=== PATIENT | female | born 1980 | race Caucasian/White ===

== ENCOUNTER 2019-06-14 08:19 | Observation (INO) | payer SELFPAY ==
[2019-06-14] VITALS (10 sets, daily range): BP systolic 121–156; BP diastolic 78–93; PULSE 62–79; RESP 16–22; TEMP 36.5–37.1; O2SAT 97–98; BMI 38.4
--- NOTE | 2019-06-14 08:21 | ED_ITS ---
Entered by Stephanie Locke, acting as scribe for Dinesh Juan DO HPI - Abdominal Pain General: Chief Complaint: Abdominal Pain Stated Complaint: abd pain Time Seen by Provider: 06/14/19 08:19 Source: patient and family Mode of arrival: ambulatory Limitations: no limitations History of Present Illness: HPI narrative: 38 yo female presents with abdomen pain and cramping. pt states this started yesterday. pt has had loss of appetite. pt has had nausea and vomiting. pt states nothing makes this better or worse. MD elicited complaint: abdominal pain (cramping) Pertinent past history: none Onset (ago): day(s) (last night) Pain Consistency: constant Location: LUQ and RUQ Severity: moderate Quality: cramping Radiation: none Exacerbating factors: vomiting Relieving factors: nothing Associated Symptoms: Reports nausea and vomiting Review of Systems General: Reports: 10 or more systems reviewed and unremarkable except in HPI and below GI: Reports: abdominal pain, nausea and vomiting PFSH ED PFSH: Statuses (acute, chronic, etc) shown below reflect problem list status as previously entered and may not be historically accurate Social History Smoking and tobacco status: current every day smoker Physical Exam Const: COMMON NORMALS: no apparent distress, average body habitus, oriented x3, no limitations, healthy appearing, alert and well nourished HENMT: COMMON NORMALS: normocephalic, head/scalp atraumatic, hearing grossly normal bilaterally, external ears normal, EAC's normal, TM's normal bilaterally, external nose normal, nasal mucous membranes and turbinates normal, moist oral mucous membranes, oropharynx normal, dentition normal and gingiva normal HEAD & SCALP: normocephalic and atraumatic NOSE: external nose normal and nasal mucous membranes and turbinates normal EXTERNAL EAR: Yes external ears normal EXTERNAL AUDITORY CANAL: EAC's normal TYMPANIC MEMBRANE: TM's normal bilaterally Eye: COMMON NORMALS: PERRL, EOMs intact bilaterally, conjunctivae normal, no scleral icterus, no papilledema, normal visual araujo by confrontation and fundi normal bilaterally CONJUNCTIVA: Yes conjunctivae normal PUPIL: Yes PERRL DIRECT OPHTHALMOSCOPY: Yes no papilledema and Yes fundi normal bilaterally Neck/C-Spine: COMMON NORMALS: full ROM, no lymphadenopathy, supple, no meningeal signs, no JVD, thyroid normal and no carotid bruits THYROID: thyroid normal Chest: COMMONS NORMALS: inspection of chest normal and palpation of chest normal Resp: COMMON NORMALS: normal respiratory effort, no retractions, no use of accessory muscles, clear to auscultation bilaterally and percussion normal AUSCULTATION: clear to auscultation bilaterally PERCUSSION: percussion normal Cardio: COMMON NORMALS: no JVD, regular rate, regular rhythm, S1 normal heart sound, S2 normal heart sound, no gallops, no clicks, no murmurs, no rub and peripheral pulses 2+ throughout RATE: regular rate RHYTHM: regular rhythm HEART SOUNDS: S1 normal and S2 normal PERIPHERAL PULSES: pulses 2+ throughout : COMMON NORMALS: Yes no CVA tenderness and Yes external appearance normal BLADDER/KIDNEY EXAM: Yes no CVA tenderness Back/Pelvis: COMMON NORMALS: no CVA tenderness, thoracic and lumbar spine normal to inspection, no thoracic nor lumbar tenderness, thoraco-lumbar ROM normal and straight leg raise negative bilaterally Extremity: COMMON NORMALS: normal to inspection, full ROM, normal capillary refill, no joint enlargement, no clubbing, cyanosis or edema, no calf tenderness and no pedal edema Neuro: COMMON NORMALS: oriented x3 SENSORIUM/ORIENTATION: Yes alert MENINGEAL SIGNS: Yes no meningeal signs Skin: COMMON NORMALS: no rashes or lesions noted, no wounds, skin turgor normal, no jaundice, no petechiae and no mottling GENERAL SKIN EXAM: no rashes or lesions noted and turgor normal Course Vital Signs: Vital signs: Vital Signs Temperature 97.7 F 06/14/19 08:22 Pulse Rate 62 06/14/19 08:22 Respiratory Rate 16 06/14/19 08:22 Blood Pressure 139/84 06/14/19 08:22 Pulse Oximetry 97 06/14/19 08:32 MDM - Abdominal Pain Lab Data: Labs: Lab Results 06/14/19 06/14/19 06/14/19 Range/Units 08:40 09:05 09:05 WBC 12.1 H (4.0-10.0) 10^3/ uL RBC 5.18 (4.1-5.3) 10^6/u L Hgb 13.6 (11.5-15.3) g/dL Hct 43.5 (37.0-47.0) % MCV 84.0 (81-99) fL MCH 26.3 L (28.0-34.0) pg MCHC 31.3 (30.0-36.0) g/dL RDW 14.2 (12.1-15.1) % Plt Count 568 H (130-400) 10^3/c mm MPV 9.4 (7.4-10.4) fL Neut % (Auto) 73.3 % Lymph % (Auto) 19.6 % [place] % (Auto) 4.1 % Eos % (Auto) 2.3 % Baso % (Auto) 0.3 % Neut # (Auto) 8.9 H (1.8-7.7) 10^3/u L Lymph # (Auto) 2.4 (0.8-4.8) 10^3/u L [place] # (Auto) 0.5 (0.2-0.9) 10^3/u L Eos # (Auto) 0.3 (0.0-0.8) 10^3/u L Baso # (Auto) 0.0 (0.0-0.1) 10^3/u L Nucleated RBC % (a uto) 0 % Nucleated RBCs # 0.0 /100WBC Sodium 137 (136-145) mmol/L Potassium 4.4 (3.5-5.1) mmol/L Chloride 102 (98-107) mmol/L Carbon Dioxide 20 L (22-29) mmol/L Anion Gap 19.4 H (5-19) BUN 11 (6-20) mg/dL Creatinine 0.5 (0.5-0.9) mg/dL GFR Calculation 138.1 H (90-130) mL/min Glucose 158 H (65-115) mg/dL Lactate (0.5-2.2) mmol/L Calcium 9.3 (8.5-10.5) mg/dL Total Bilirubin 0.3 (0.15-1.2) mg/dL AST 20 (0-32) U/L ALT 16 (0-33) U/L Alkaline Phosphata se 140 H (35-105) IU/L Creatine Kinase 231 H (26-192) U/L Total Protein 8.0 (6.6-8.7) g/dL Albumin 3.7 (3.5-5.2) g/dL Globulin 4.3 (1.3-4.6) g/dL Lipase 11 L (13-60) U/L HCG, Qual (Negative) Urine Color Yellow (Yellow) Urine Appearance Cloudy (CLEAR) Urine pH 7.0 (5-7) Ur Specific Gravit y 1.010 (1.005-1.030) Urine Protein Trace (Negative) Urine Glucose (UA) Norm (Normal) Urine Ketones 1+ H (Negative) Urine Occult Blood 2+ H (Negative) Urine Nitrate Negative (Negative) Urine Bilirubin 1+ H (NEGATIVE) Urine Urobilinogen 4 H (Negative) mg/dL Ur Leukocyte Hcelo ase 1+ H (Negative) Urine RBC 0-4 H (0-2) /hpf Urine WBC 0-4 H (0-5) /hpf Ur Squamous Epith Cells 15-25 H (0-5) Urine Bacteria 1+ H (NONE) Urine Mucus 2+ 06/14/19 06/14/19 Range/Units 09:05 09:05 WBC (4.0-10.0) 10^3/ uL RBC (4.1-5.3) 10^6/u L Hgb (11.5-15.3) g/dL Hct (37.0-47.0) % MCV (81-99) fL MCH (28.0-34.0) pg MCHC (30.0-36.0) g/dL RDW (12.1-15.1) % Plt Count (130-400) 10^3/c mm MPV (7.4-10.4) fL Neut % (Auto) % Lymph % (Auto) % [place] % (Auto) % Eos % (Auto) % Baso % (Auto) % Neut # (Auto) (1.8-7.7) 10^3/u L Lymph # (Auto) (0.8-4.8) 10^3/u L [place] # (Auto) (0.2-0.9) 10^3/u L Eos # (Auto) (0.0-0.8) 10^3/u L Baso # (Auto) (0.0-0.1) 10^3/u L Nucleated RBC % (a uto) % Nucleated RBCs # /100WBC Sodium (136-145) mmol/L Potassium (3.5-5.1) mmol/L Chloride (98-107) mmol/L Carbon Dioxide (22-29) mmol/L Anion Gap (5-19) BUN (6-20) mg/dL Creatinine (0.5-0.9) mg/dL GFR Calculation (90-130) mL/min Glucose (65-115) mg/dL Lactate 1.1 (0.5-2.2) mmol/L Calcium (8.5-10.5) mg/dL Total Bilirubin (0.15-1.2) mg/dL AST (0-32) U/L ALT (0-33) U/L Alkaline Phosphata se (35-105) IU/L Creatine Kinase (26-192) U/L Total Protein (6.6-8.7) g/dL Albumin (3.5-5.2) g/dL Globulin (1.3-4.6) g/dL Lipase (13-60) U/L HCG, Qual Negative (Negative) Urine Color (Yellow) Urine Appearance (CLEAR) Urine pH (5-7) Ur Specific Gravit y (1.005-1.030) Urine Protein (Negative) Urine Glucose (UA) (Normal) Urine Ketones (Negative) Urine Occult Blood (Negative) Urine Nitrate (Negative) Urine Bilirubin (NEGATIVE) Urine Urobilinogen (Negative) mg/dL Ur Leukocyte Chelo ase (Negative) Urine RBC (0-2) /hpf Urine WBC (0-5) /hpf Ur Squamous Epith Cells (0-5) Urine Bacteria (NONE) Urine Mucus Discharge Plan Discharge Prescriptions: No Action No Known Home Medications RF: 0 Coding Level of Care Code ED Windows Deployment Technician for Chg Fwd Exam Problem Focused The documentation recorded by the Chucky wallis Bridget Annette, accurately reflects the service I personally performed and the decisions made by , Dinesh Juan, Jun 14, 2019 08:19
--- NOTE | 2019-06-14 08:31 | CT_ITS ---
WS: [id number] CT scan of the abdomen and pelvis with IV contrast. Additional two-dimensional coronal and sagittal reconstruction was performed. 06/14/2019 Clinical Data: abd pain Comparison: None. DLP: 1700.[address] scans at [facility] use at least one of these dose optimization techniques: automat ed exposure control; mA and/or kV adjustment per patient size (includes targeted exams where dose is matched to clinical indication); or iterative reconstruction. Findings: The lower lungs show no nodules, masses or effusions. The liver, spleen, adrenal glands and pancreas are normal. Clips in the gallbladder fossa from a chol ecystectomy. The left kidney shows normal function with no cysts, masses, hydronephrosis or calculi. The right kid belem is small with an irregular cortex. There is moderate function. There is a 1.1 cm inferior right renal calculus with a 2.64 cm right upper pole cyst. Abdominal aorta is normal in size. No appendicitis or diverticulitis is seen. There is moderate dilatation of the small bowel loops in t he left upper quadrant. There is no point of transition. The distal small bowel is normal in size. Th ere is fluid throughout the small bowel. The colon shows fecal material within especially in the sigm oid and rectum. No abscess, adenopathy, ascites, mass or free air is seen. The bladder is unremarkable. The uterus is normal. No inguinal hernia is seen. The bones of the lower thorax, lumbar spine, pelvis, and hips show degenerative disc narrowing at L5- S1.. CT/CT abdomen pelvis w con* [id number] Impression: 1. Moderate dilatation of small bowel in left upper quadrant which could repres ent a severe ileus or possibly an early small bowel obstruction. 2. Small right kidney probably from chronic pyelonephritis with a superior pole cyst in inferior pole calculus. 3. Cholecystectomy.
--- NOTE | 2019-06-14 08:56 | PC.NURSE ---
Patient was attempted 2 times with US IV. Unsuccessful. Patient refusing blood draw at this time. Provider informed of situation.
[2019-06-14 09:15] LABS: Basophils % 0.3 %; Eosinophils # 0.3 10^3/uL (0.0-0.8); Eosinophils % 2.3 %; Hematocrit 43.5 % (37.0-47.0); Hemoglobin 13.6 g/dL (11.5-15.3); Lymphocytes # 2.4 10^3/uL (0.8-4.8); Lymphocytes % 19.6 %; Mean Corpuscular HGB Conc 31.3 g/dL (30.0-36.0); Mean Corpuscular Hemoglobin 26.3 pg (28.0-34.0); Mean Platelet Volume 9.4 fL (7.4-10.4); Monocytes # 0.5 10^3/uL (0.2-0.9); Monocytes % 4.1 %; Neutrophils # 8.9 10^3/uL (1.8-7.7); Neutrophils % 73.3 %; Nucleated Red Blood Cells % 0 %; Platelet Count 568 10^3/cmm (130-400); Red Blood Count 5.18 10^6/uL (4.1-5.3); Red Cell Distribution Width 14.2 % (12.1-15.1); White Blood Count 12.1 10^3/uL (4.0-10.0)
[2019-06-14] MEDS: sodium chloride 0.9% 1,000 ML 999 ML IV (09:17)
[2019-06-14] MEDS: ondansetron 2 mg/ML SDV 2 mL 4 MG IVP ×2 (09:17→13:26)
[2019-06-14] MEDS: morphine 4 mg/mL SDV 1 mL 2 MG IVP ×3 (09:17→18:41)
[2019-06-14 09:20] LABS: HCG, Serum Qual Negative (Negative)
[2019-06-14 09:25] LABS: Lactate (Lactic Acid level) 1.1 mmol/L (0.5-2.2)
[2019-06-14 09:26] LABS: Alanine Aminotransferase 16 U/L (0-33); Albumin Level 3.7 g/dL (3.5-5.2); Alkaline Phosphatase 140 IU/L (35-105); Anion Gap 19.4 (5-19); Aspartate Amino Transferase 20 U/L (0-32); Blood Urea Nitrogen 11 mg/dL (6-20); Calcium 9.3 mg/dL (8.5-10.5); Carbon Dioxide 20 mmol/L (22-29); Chloride 102 mmol/L (98-107); Creatine Phosphokinase 231 U/L (26-192); Globulin 4.3 g/dL (1.3-4.6); Glomerular Filtration Rate 138.1 mL/min (90-130); Glucose 158 mg/dL (65-115); Lipase 11 U/L (13-60); Potassium 4.4 mmol/L (3.5-5.1); Sodium 137 mmol/L (136-145); Total Bilirubin 0.3 mg/dL (0.15-1.2)
[2019-06-14 09:44] LABS: Add Urine Microscopic? YES; Bilirubin Urine 1+ (NEGATIVE); Blood Urine 2+ (Negative); Glucose Urine UA Norm (Normal); Ketones Urine 1+ (Negative); Leukocyte Esterase Urine 1+ (Negative); Nitrate Urine Negative (Negative); Protein Urine Trace (Negative); Urine Appearance Cloudy (CLEAR); Urine Color Yellow (Yellow); Urobilinogen Urine 4 mg/dL (Negative)
[2019-06-14 09:45] LABS: Add Urine Culture? No; Bacteria Urine 1+; Mucus Urine 2+; RBC Urine 0-4 /hpf (0-2); Squamous Epithelial Cell Urine 15-25 (0-5); WBC Urine 0-4 /hpf (0-5)
[2019-06-14] MEDS: iodixanol 320 mg/mL 100mL Btl IV (09:47)
--- NOTE | 2019-06-14 10:57 | P.HP_ITS ---
Providers/Chief Complaint Admitting Physician: Alondra Mckeon DO Primary Care Provider: Rico Garcia Chief Complaint: abd pain History of Present Illness Erica Gamboa is a 38 year old female with a past medical history of kidney stones and recurrent small bowel obstruction that presented to the emergency department for abdominal pain. She reported that her pain started yesterday, she reported having discomfort in the center of her abdomen that continued to become worse. She stated that it started as a cramping discomfort then she began having cramping followed by sharp pain in her abdomen. She denies any fevers or chills, no sick contacts. She reported that she has had several episodes of nausea and vomiting, unable to keep down any food or drink. Patient stated that she had some dark stool recently, no tarry like stools. Patient stated that since being in the emergency department she did have a small amount of liquid bowel movement. Patient was seen and evaluated in the emergency department, noted to have early small bowel obstruction and admitted for further evaluation and treatment. General surgeon consulted in the ED. Review of Systems Const: Denies: fever or chills Eyes: Denies: change in vision ENMT: Denies: nasal congestion Card: Denies: chest pain, palpitations or edema Resp: Reports: productive cough; Denies: shortness of breath or coughing up blood GI: Reports: abdominal pain, nausea, vomiting and diarrhea; Denies: constipation, blood in stool or black tarry stool : Denies: painful urination or blood in urine Musc: Denies: extremity pain or muscle cramps Skin/Breast: Denies: rash or new lesion Neuro: Denies: headache or dizziness Psych: Denies: anxiety or depression Endo: Denies: excessive urination or hot flashes Chase/Lymph: Denies: easy bruising or easy bleeding Medications/Allergies Home Medications Medication Instructions Recorded Confirmed Last Taken Type No Known Home Medications 06/14/19 06/14/19 Unknown History Allergies Allergy/AdvReac Type Severity Reaction Status Date / Time No Known Allergies Allergy Verified 06/14/19 08:28 PFSH Acute PFSH: Statuses (acute, chronic, etc) shown below reflect problem list status as previously entered and may not be historically accurate Medical History (Updated 06/14/19 @ 11:05 by Alondra Mckeon DO) History of small bowel obstruction Surgical History (Updated 06/14/19 @ 11:05 by Alondra Mckeon DO) History of appendectomy History of cholecystectomy History of exploratory laparotomy Reported history in 1991, 1994 and 1999 Family History (Updated 06/14/19 @ 11:05 by Alondra Mckeon DO) Father CAD (coronary artery disease) Diabetes Social History (Updated 06/14/19 @ 11:06 by Alondra Mckeon DO) Smoking and tobacco status: current every day smoker cigarettes Packs smoked per day: 0.5 Alcohol intake: never Substance/Drug Use: never Female Reproductive History: Date of last menstrual period: 05/18/19 Vitals/I&O/Wt Last Vital Signs Temp 97.7 F 06/14/19 08:22 Pulse 62 06/14/19 08:22 Resp 16 06/14/19 08:22 BP 139/84 06/14/19 08:22 Pulse Ox 97 06/14/19 08:32 Weight last 48 hrs Weight 95.254 kg Physical Exam Const: COMMON NORMALS: oriented x3 and alert GENERAL APPEARANCE: cooperative ORIENTATION/CONSCIOUSNESS: Yes awake, Yes oriented to person, Yes oriented to place and Yes oriented to time HENMT: COMMON NORMALS: normocephalic and head/scalp atraumatic HEAD & SCALP: normocephalic and atraumatic Eye: COMMON NORMALS: PERRL PUPIL: Yes PERRL Neck/C-Spine: COMMON NORMALS: supple GENERAL: Yes normal visual inspection Resp: COMMON NORMALS: normal respiratory effort and clear to auscultation bilaterally EFFORT & INSPECTION: Yes able to speak in complete sentences AUSCULTATION: clear to auscultation bilaterally, no rhonchi and no wheezes Cardio: COMMON NORMALS: regular rate, regular rhythm and no murmurs RATE: regular rate RHYTHM: regular rhythm GI: OTHER: Soft, tenderness to palpation diffusely with light touch over the entire anterior abdominal wall, no rigidity, hypoactive bowel sounds Extremity: COMMON NORMALS: no clubbing, cyanosis or edema and no calf tenderness Neuro: COMMON NORMALS: oriented x3, CN's II-XII intact bilaterally, moves all extremities and no focal motor deficits SENSORIUM/ORIENTATION: Yes alert, Yes oriented to person, Yes oriented to place and Yes oriented to time SPEECH: s peech normal Psych: COMMON NORMALS: mental status grossly normal Skin: COMMON NORMALS: no rashes or lesions noted GENERAL SKIN EXAM: no rashes or lesions noted Data : 06/14/19 09:05 06/14/19 09:05 CT Abd/Pel: Radiologist's impression: Personally reviewed, report as read by radiologist: Impression: 1. Moderate dilatation of small bowel in left upper quadrant which could represent a severe ileus or possibly an early small bowel obstruction. 2. Small right kidney probably from chronic pyelonephritis with a superior pole cyst in inferior pole calculus. 3. Cholecystectomy. A&P Assessment and plan (1) Small bowel obstruction: CT scan as noted above with moderate dilation of the small bowel in the left upper quadrant, severe ileus or possible early small bowel obstruction. Dr. Newberry, general surgeon was consulted by ER provider. Appreciate recommendations and assistance in patient's care. Patient having discomfort at time of exam in the ED, however refusing NG tube placement. Patient became upset and raised her voice when this was discussed and reported that no one would touch her with an NG tube as she has had them in the past and will not do it again. Discussed with her that due to her continued pain this could be a conservative measure to help with pain and discomfort and she still refused. NPO with bowel rest Will follow up with recommendations from surgery Repeat KUB in AM Reported having liquid BM in ED Status: Acute Code(s): K56.609 - Unspecified intestinal obstruction, unspecified as to partial versus complete obstruction Additional A&P Information Hyperglycemia without evidence of diabetes mellitus, will check A1c Dehydration: We will continue with gentle IV fluids, findings on labs appeared to be hemoconcentrated Tobacco abuse: Strongly encourage cessation DVT prophylaxis: SCDs Diet: NPO Attestations Medical Necessity Statement*: Observation due to her early small bowel obstruction, expected stay less than 2 midnights Coding Level of Care Code Acute National Van Truck Driver for g Fwd Diagnoses Small bowel obstruction K56.609
[2019-06-14 12:49] LABS: Estmated Average Glucose 126
--- NOTE | 2019-06-14 13:04 | P.CONIM_ITS ---
Providers/Reason For Consult Consulting Physican/Specialty*: Dr Newberry General surgery Reason for Consult*: Small bowel obstruction Attending Physician: Alondra Mckeon DO Primary Care Provider: Rico Garcia History of Present Illness History of Present Illness Chief complaint ; My tumwolf hurcaleb HPI Erica Gamboa is a 38 year old female presents with worsening abdominal pain associated with diarrhea over the past day or so in addition to nausea, patient undergone evaluation in the emergency department including a CT scan of the abdomen and pelvis that showed; 1. Moderate dilatation of small bowel in left upper quadrant which could represent a severe ileus or possibly an early small bowel obstruction. 2. Small right kidney probably from chronic pyelonephritis with a superior pole cyst in inferior pole calculus. 3. Cholecystectomy. Patient denies any history of food poisoning or antibiotics, she admits that she had previous laparotomies, general surgery was consulted for further evaluation and potential manage Review of Systems Const: Denies: fever, chills, body aches or malaise Card: Denies: chest pain Resp: Denies: shortness of breath GI: Reports: abdominal pain, nausea, vomiting, diarrhea and cramping; Denies: difficulty swallowing, constipation or blood in stool Neuro: Denies: headache Psych: Denies: anxiety or depression Meds/Allergies Home Medications and Allergies Home Medications Medication Instructions Recorded Confirmed Type No Known Home Medications 06/14/19 06/14/19 History Allergies Allergy/AdvReac Type Severity Reaction Status Date / Time No Known Allergies Allergy Verified 06/14/19 16:56 Current Medications Current Medications Generic Name Dose Route Start Last Admin Trade Name Freq PRN Reason Stop Dose Admin Morphine Sulfate 2 mg 06/14/19 10:30 06/14/19 11:20 Morphine IVP 2 mg Q6H PRN Administration SEVERE PAIN PFSH Acute PFSH: Statuses (acute, chronic, etc) shown below reflect problem list status as previously entered and may not be historically accurate Medical History History of small bowel obstruction (Acute) Surgical History History of appendectomy (Acute) History of cholecystectomy (Acute) History of exploratory laparotomy (Acute) Reported history in 1991, 1994 and 1999 Family History Father CAD (coronary artery disease) Diabetes Social History Smoking and tobacco status: current every day smoker cigarettes Packs smoked per day: 0.5 Alcohol intake: never Female Reproductive History: Date of last menstrual period: 05/18/19 Vitals/I&O/Wt Last Vital Signs Temp 97.7 F 06/14/19 08:22 Pulse 72 06/14/19 11:16 Resp 16 06/14/19 11:16 BP 156/93 06/14/19 11:16 Pulse Ox 98 06/14/19 11:16 Weight last 48 hrs Weight 210 lb Physical Exam Const: COMMON NORMALS: no apparent distress and oriented x3 GENERAL APPEARANCE: cooperative ORIENTATION/CONSCIOUSNESS: Yes awake, Yes oriented to person, Yes oriented to place and Yes oriented to time HENMT: COMMON NORMALS: normocephalic HEAD & SCALP: normocephalic Eye: COMMON NORMALS: PERRL and no scleral icterus PUPIL: Yes PERRL Lymph: LYMPHATIC: no lymphadenopathy noted Chest: COMMONS NORMALS: inspection of chest normal Resp: COMMON NORMALS: normal respiratory effort and clear to auscultation bilaterally AUSCULTATION: clear to auscultation bilaterally Cardio: COMMON NORMALS: S1 normal heart sound and S2 normal heart sound; negative for no murmurs HEART SOUNDS: S1 normal and S2 normal GI: COMMON NORMALS: soft to palpation; negative for no hepatosplenomegaly INSPECTION: Yes normal to inspection PA LPATION: Yes soft, No firm, Yes tender (Towards the left side of the abdomen but no signs of peritonitis), No guarding, No rigid and No no hepatosplenomegaly Neuro: COMMON NORMALS: oriented x3 SENSORIUM/ORIENTATION: Yes oriented to person, Yes oriented to place and Yes oriented to time A&P Assessment and plan (1) Abdominal pain: After thorough history physical examination and reviewing the chart and images with my personal interpretetion, I do not see the need for acute surgical intervention at this point, most likely the patient has a gastroenteritis that should respond to conservative measures. I highly recommend to send for stool studies including C. difficile IV fluid resuscitation Patient can have clear liquid diet from surgical standpoint Repeated physical exam Strict I's and O Assurance and education All questions have been answered and all concerns have been addressed to patient's satisfaction. Status: Acute Qualifiers: Abdominal location: generalized Qualified Code(s): R10.84 - Generalized abdominal pain Code(s): R10.9 - Unspecified abdominal pain Consult Attestations Medical Necessity Statement: Per hospitalist service Time Spent in Patient Care: 16 - 35 minutes (>than 50% of time spent in counselling and/or direct pt care on unit) . Coding Level of Care Code Acute Accountant Machine Processing for Chg Fwd Exam Problem Focused Diagnoses Abdominal pain R10.84 Abdominal location: generalized
[2019-06-14] MEDS: sodium chloride 0.9% 1,000 ML 100 ML IV ×2 (13:27→22:39)
[2019-06-14] MEDS: acetaminophen 325 mg Tablet 650 MG PO (22:40)
[2019-06-15] VITALS: BP 135/88; PULSE 63; RESP 18; TEMP 36.9; O2SAT 97
[2019-06-15 00:36] VITALS: RESP 18
[2019-06-15] MEDS: morphine 4 mg/mL SDV 1 mL 2 MG IVP (00:36)
[2019-06-15 04:00] VITALS: BP 104/68; PULSE 77; RESP 20; TEMP 37.3; O2SAT 99
--- NOTE | 2019-06-15 05:56 | P.PN_ITS ---
Subjective Subjective: Interval history: Overall feels better and passing gas Tolerating p.o. intake Vitals/I&O/Wt Last Vital Signs Temp 99.1 F 06/15/19 04:00 Pulse 77 06/15/19 04:00 Resp 20 H 06/15/19 04:00 BP 104/68 06/15/19 04:00 Pulse Ox 99 06/15/19 04:00 06/14/19 06/14/19 06/15/19 14:59 22:59 06:59 Intake Total 1040 / 1040 Balance 1040 / 1040 Weight last 48 hrs Weight 240 lb 5 oz Weight 210 lb Physical Exam Const: COMMON NORMALS: no apparent distress and oriented x3 GENERAL APPEARANCE: cooperative ORIENTATION/CONSCIOUSNESS: Yes awake, Yes oriented to person, Yes oriented to place and Yes oriented to time Eye: COMMON NORMALS: PERRL and no scleral icterus PUPIL: Yes PERRL Resp: COMMON NORMALS: normal respiratory effort and clear to auscultation bilaterally AUSCULTATION: clear to auscultation bilaterally GI: COMMON NORMALS: soft to palpation; negative for no hepatosplenomegaly INSPECTION: Yes normal to inspection PALPATION: Yes soft, No firm, No tender, No guarding, No rigid and No no hepatosplenomegaly Neuro: COMMON NORMALS: oriented x3 SENSORIUM/ORIENTATION: Yes oriented to person, Yes oriented to place and Yes oriented to time Skin: COMMON NORMALS: no rashes or lesions noted GENERAL SKIN EXAM: no rashes or lesions noted Data : 06/14/19 09:05 06/14/19 09:05 A&P Assessment and plan (1) Abdominal pain: At this point from surgical standpoint of view I do not see evidence of bowel obstruction, can advance diet as tolerated. Once patient tolerates p.o. intake can be discharged from surgery standpoint of view and follow-up as needed as an outpatient Thank you for consulting general surgery to participate taking care Ms. Gamboa Status: Acute Qualifiers: Abdominal location: generalized Qualified Code(s): R10.84 - Generalized abdominal pain Code(s): R10.9 - Unspecified abdominal pain Attestations Medical Necessity Statement*: Observation status Time Spent in Patient Care: 16 - 35 minutes (>than 50% of time spent in counselling and/or direct pt care on unit) . Coding Level of Care Code Acute Eligibility Specialist for Chg Fwd Diagnoses Abdominal pain R10.84 Abdominal location: generalized
[2019-06-15 07:57] VITALS: BP 102/72; PULSE 86; RESP 18; TEMP 37.1; O2SAT 100
[2019-06-15] MEDS: acetaminophen 325 mg Tablet 650 MG PO (09:42)
[2019-06-15] MEDS: sodium chloride 0.9% 1,000 ML 100 ML IV (09:42)
--- NOTE | 2019-06-15 11:39 | PC.CHAP ---
Pastoral Care Encounter/Spiritual Assessment Type of Contact [xz] Declined escalator attendant visit [] Patient/Family/Request visit [] Outpatient visit [] Follow-up visit [] Physician referral [] Code/Alert [] Routine visit [] Staff referral [] Actively dying [] Patient sleeping [] Family support [] [] Out of room [] Palliative care [] [] Receiving care in room [] Pre-surgical visit [] Trauma [] Long length of stay [] ICU visit [] Other: Relational/Emotional Strength [] Patient feels connected with others/family/visitors/staff [] Distress [] Loneliness/isolation [] Abandonment Spirituality of Patient [] Person of [place] [] Attends Latter Day of their [place] [] Believes in Prayer [] Reads Bible or Anabaptist materials [] There are Spiritual issues to be addressed Nutrition [employer] Ambassador Interventions [] Prayer [] Active listening [] Non-anxious presence [] Spiritual/emotional support [] Crisis/trauma care [] Spiritual counseling [] Bereavement support [] Provided bereavement packet [] Provided Bible/devotional materials [] Provided toy/stuffed animal, coloring book to patient or family member [] Provided Communion [] Anointing/[place] [] Salvation [] Completed spiritual assessment [] Other: Impact on Illness or Injury [] Angry [] Fearful [] Anxious [] Often cries [] Exhaustion [] Unable to work [] Unable to attend nondenominational [] Unable to walk/stand [] Unable to read [] Unable to drive [] Unable to eat/drink [] Unable to sleep [] Unable to be with family [] Patient intubated [] Other: Summary Time spent with patient
[2019-06-15 11:57] VITALS: BP 111/72; PULSE 80; RESP 18; TEMP 37.1; O2SAT 98
[2019-06-15] MEDS: dicyclomine 10 mg Capsule PO (12:59)
--- NOTE | 2019-06-15 14:05 | P.DS_ITS ---
Discharge Providers Date of Admission: 06/14/19 11:15 Date of Discharge: June 15, 2019 Attending Provider at Admission: Alondar Mckeon DO Attending Provider at Discharge: Alondra Mckeon DO Primary Care Provider: Rico Garcia Diagnoses at Discharge Discharge Diagnosis (1) Abdominal pain: Status: Acute Problem details: With concern for gastroenteritis Improved And improved and patient had no further emesis throughout her hospital stay, had episode of diarrhea in the ED, this resolved and patient continued to pass flatus Started on Bentyl with improvement in symptoms Tolerated GI soft diet on date of discharge without concerns Recommend outpatient follow-up with primary care provider Qualifiers: Abdominal location: generalized Qualified Code(s): R10.84 - Generalized abdominal pain Reason for Visit Reason for Visit: Reason For Visit: abd pain Hospital Course Hospital Course: Patient was seen and evaluated in the emergency department initially had imaging findings question of partial or early small bowel obstruction, she was kept n.p.o. and general surgery was consulted. Patient did have an episode of liquid stool in the ED. She was kept n.p.o. and surgeon reported concern for gastroenteritis, no clear small bowel obstruction based on imaging. She continued to gradually improve with conservative management and diet was increased to clear liquid diet. She tolerated this well without any nausea or vomiting and abdominal pain continued to improve. She began passing flatus and had no further diarrhea. Diet was increased to a GI soft diet, which she did well with. On date of discharge she denied any chest pain or shortness of breath. She reported some occasional cramping in the abdomen, denied any dysuria or hematuria. Patient was monitored closely after diet was increased and she had no further nausea or vomiting and continued to pass flatus, therefore was discharged home. Discharge Summary: Discharge to home Follow-up with primary care provider, Ro Willson in 3 to 5 days Started on Bentyl as needed for abdominal cramping, Zofran as needed for nausea, short supply of pain medication to use as needed for discomfort, however discussed with patient to take caution with this medication as it can cause some constipation. Discussed with her the recommendation to increase activity and increase water intake. Stool softeners at home if developing any type of constipation Physical Exam Const: COMMON NORMALS: oriented x3 and alert GENERAL APPEARANCE: cooperative ORIENTATION/CONSCIOUSNESS: Yes awake, Yes oriented to person, Yes oriented to place and Yes oriented to time HENMT: COMMON NORMALS: normocephalic and head/scalp atraumatic HEAD & SCALP: normocephalic and atraumatic Eye: COMMON NORMALS: PERRL PUPIL: Yes PERRL Neck/C-Spine: COMMON NORMALS: supple GENERAL: Yes normal visual inspection Resp: COMMON NORMALS: normal respiratory effort and clear to auscultation bilaterally EFFORT & INSPECTION: Yes able to speak in complete sentences AUSCULTATION: clear to auscultation bilaterally, no rhonchi and no wheezes Cardio: COMMON NORMALS: regular rate, regular rhythm and no murmurs RATE: regular rate RHYTHM: regular rhythm GI: OTHER: Soft, mild tenderness to palpation in the left and right lower quadrants, no guarding or rigidity, normal bowel sounds Extremity: COMMON NORMALS: no clubbing, cyanosis or edema and no calf tenderness Neuro: COMMON NORMALS: oriented x3, CN's II-XII intact bilaterally, moves all extremities and no focal motor deficits SENSORIUM/ORIENTATION: Yes alert, Yes oriented to person, Yes oriented to place and Yes oriented to time SPEECH: speech normal Psych: COMMON NORMALS: mental status grossly normal Skin: COMMON NORMALS: no rashes or lesions noted GENERAL SKIN EXAM: no rashes or lesions noted Discharge Data Data Completed and Pending: Completed Studies During Hospitalization Category Date Time Status CT abdomen pelvis w con* [id number] Urge nt Cat Scan 06/14/19 08:31 Completed Vitals: Last Vital Signs Temp 98.8 F 06/15/19 11:57 Pulse 80 06/15/19 11:57 Resp 18 06/15/19 11:57 BP 111/72 06/15/19 11:57 Pulse Ox 98 06/15/19 11:57 Discharge Plan Discharge Patient Disposition: Home, Self-Care Condition: Stable Prescriptions: New hydrocodone-acetaminophen 5-325 mg Tablet 1 tab PO Q6H PRN (Reason: Moderate Pain) 3 Days Qty: 12 RF: 0 dicyclomine 10 mg Capsule 10 mg PO Q4H PRN (Reason: Spasms) 5 Days Qty: 20 RF: 0 ondansetron HCl [Zofran] 4 mg tablet 4 mg PO Q6H PRN (Reason: nausea and vomiting) 4 Days Qty: 16 RF: 0 No Action No Known Home Medications RF: 0 Discharge Orders: Discharge Order (Routine); Ordered 06/15/19 Ordered By: Alondra Mckeon Referrals: Ro Willson FNP [Nurse Practitioner] - 4-7 days (06/21/19 @ 09:45) Discharge Diet: Advance as tolerated and GI Soft Discharge Activity: Increase activity as tolerated Activity Restrictions/Additional Instructions: Call your physician or present to the ER for any acute worsening or concern. Increase activity as tolerated. Gradually increase diet as tolerated, begin with bland foods and avoid any greasy, spicy or fatty foods. Started on Bentyl, as needed for abdominal cramping [place], pain medication as needed for discomfort Zofran as needed for nausea Can take docusate 100 mg twice daily if needed for stool softener Follow-up with primary care provider as scheduled on 06/21/2019 If continued symptoms may need further outpatient follow-up with general surgery, or consideration of outpatient colonoscopy due to fluctuation of constipation and diarrhea. 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
[2019-06-15 15:03] VITALS: BP 111/72; PULSE 80; RESP 18; TEMP 37.1; O2SAT 98
== END 2019-06-15 15:30 | disposition home or self-care (01) ==
LOC: ER 10:30 → MEDSURG 11:16
PROVIDERS: Admitting Provider Family Medicine; Emergency Provider Family Medicine; Family Provider Nurse Practitioner Family; PCP Nurse Practitioner Family; Visit Provider Family Medicine
DX: K56.609 Unspecified intestinal obstruction, unspecified as to partial versus complete obstruction (principal); R73.9 Hyperglycemia, unspecified; E86.0 Dehydration; F17.210 Nicotine dependence, cigarettes, uncomplicated; Z82.49 Family history of ischemic heart disease and other diseases of the circulatory system; Z83.3 Family history of diabetes mellitus
CPT/HCPCS: 12345; 36415; 74177; 80053; 81001; 82550; 83036; 83605; 83690; 84703; 85025; 96360; 96361; 96374; 96375; 96376; 99283; 99285; A9270; G0378; J2270; J2405; J7030; Q9967

== ENCOUNTER → 2019-12-05 15:30 | Outpatient (BNVA) | payer SELFPAY | PROVIDERS: Family Provider Nurse Practitioner Family; PCP Nurse Practitioner Family; Visit Provider Nurse Practitioner Family | DX: J02.9 Acute pharyngitis, unspecified (principal) | CPT/HCPCS: 87880 ==

== ENCOUNTER → 2022-09-17 14:46 | Outpatient (BNVA) | payer BC, MEDICAID, SELFPAY | PROVIDERS: Family Provider Nurse Practitioner Family; PCP Nurse Practitioner Family; Referring Provider Registered Nurse; Visit Provider Specialist | DX: M25.552 Pain in left hip (principal); M54.50 Low back pain, unspecified; Q65.89 Other specified congenital deformities of hip | CPT/HCPCS: 73502 ==

== ENCOUNTER → 2022-09-25 15:01 | Outpatient (BNVA) | payer BC, MEDICAID, SELFPAY | PROVIDERS: Family Provider Nurse Practitioner Family; PCP Nurse Practitioner Family; Visit Provider Physician Assistant | DX: M54.9 Dorsalgia, unspecified (principal) | CPT/HCPCS: 72110 ==

== ENCOUNTER 2022-10-10 06:56 | Outpatient (CLI) | payer BC, MEDICAID, SELFPAY ==
--- NOTE | 2022-10-10 07:15 | MR_ITS ---
WS: [id number] MRI LUMBAR SPINE NONCONTRAST HISTORY: pain, chronic LEFT leg pain. COMPARISON: 10/07/2011 TECHNIQUE: Sagittal and axial multisequence imaging is submitted. Normal posterior lumbar alignment. Moderate disc space narrowing and desiccation at L5-S1 with fatty replacement of the adjacent endplates. Otherwise disc spaces are well-maintained. Conus terminates normally at L1-2 disc level. L1-L2: Bilateral facet joint arthritis, RIGHT greater than LEFT. Mild RIGHT foraminal narrowing. No s tenosis. L2-L3: Mild annular disc bulging with mild facet arthritis. There is mild narrowing of the foramina p redominantly due to facet and disc disease. Very minimal subarticular recess and foraminal stenosis. L3-L4: Annular disc bulging is mild. Moderate facet and ligamentum flavum hypertrophy. Disc asymmetri chinyere extends to the LEFT foramen. There may be a small disc protrusion. Moderate central, bilateral subarticular recess and mild foraminal stenosis. Slightly greater LEFT foraminal stenosis. There is v sam mild encroachment upon the traversing L4 nerve roots. L4-L5: Mild annular disc bulging with moderate to severe bilateral ligamentum flavum and facet arthri tis encroaching upon the thecal sac and subarticular recesses. Moderate central, bilateral subarticul ar recess and mild foraminal stenosis. Most significant encroachment upon the traversing L5 nerve bj ts. L5-S1: Moderate annular disc bulging with osteophytic ridging and facet arthritis. Greater facet join t arthritis on the RIGHT encroaching upon the subarticular recess and proximal foramen. Probable RIGH T foraminal disc protrusion. Mild central stenosis. More significant encroachment upon the S1 nerve r oots, RIGHT greater than LEFT. Disc and osteophyte causing mild to moderate narrowing of the foramina bilaterally. There is very slightly greater disc contact on the undersurface of the LEFT L5 nerve ro ot. Known marked atrophy of the RIGHT kidney. MR/MR lumbar spine wo con* [id number] IMPRESSION: 1. Moderate central, bilateral subarticular recess and mild foraminal stenosis at L4-5. Most significant encroachment upon the traversing L5 nerve roots. 2. Moderate bilateral foraminal stenosis at L5-S1 due to disc and osteophyte d isease greatest on the RIGHT. 3. Annular disc bulging and facet joint arthritis encroaching upon the subarti cular recesses and proximal RIGHT foramen at L5-S1. Mild central stenosis with encroachment by disc and osteophyte and facet disease on the S1 nerve roots, RI GHT greater than LEFT. 4. Moderate central, bilateral subarticular recess and foraminal stenosis at L 3-4. Slightly greater LEFT foraminal stenosis with mild encroachment upon the t raversing L4 nerve roots. 5. Moderate degenerative disc space narrowing and desiccation at L5-S1.
== END 2022-10-10 06:57 | disposition home or self-care (01) ==
PROVIDERS: PCP Family Medicine; Visit Provider Physician Assistant
DX: M47.816 Spondylosis without myelopathy or radiculopathy, lumbar region (principal); M79.605 Pain in left leg; G89.29 Other chronic pain; M48.061 Spinal stenosis, lumbar region without neurogenic claudication; M51.37 Other intervertebral disc degeneration, lumbosacral region
CPT/HCPCS: 72148